=== PATIENT | female | born 1990 | race Caucasian/White ===

== ENCOUNTER 2020-01-30 16:04 | Emergency (ER) | payer SELFPAY ==
--- NOTE | ~2020-01-30 | XR_ITS ---
EXAMINATION: XR lumbar spine 2-3V EXAM DATE: 01/30/2020 16:47 INDICATION: Left-sided low back pain status post fall. History of T12 fracture. TECHNIQUE: Lumber spine frontal, lateral, lateral L5-S1 projections for interpretation. Correlation i s made to CT lumbar spine 02/09/2018. FINDINGS: Again there is mild anterior wedging at the superior endplate of T12, a chronic compressio n fracture. There are no acute fractures identified. The vertebral body and disc heights are otherw ise well maintained. Sacrum, sacroiliac joints, sacral arcuate lines are intact. There is minimal l umbar levoscoliosis. There is mild lumbar facet arthropathy. IMPRESSION: No acute lumbar findings. Reviewed, dictated and finalized at location A. IMPRESSION: No acute lumbar findings.
[2020-01-30 16:09] VITALS: BP 144/84; PULSE 92; RESP 14; TEMP 36.8; O2SAT 100
--- NOTE | 2020-01-30 16:15 | ED.BACK ---
HPI - Back Pain/Injury General Chief Complaint: Back Pain/Injury Stated Complaint: back pain Time Seen by Provider: 01/30/20 16:15 Source: patient and RN notes reviewed Mode of arrival: ambulatory Limitations: no limitations History of Present Illness HPI Narrative: patient was getting out of an RV. She turned to close the door the handle came off she lost her balance and fell onto her lower back. She has a history of a compression fracture at T12. She is concerned and wants to be sure she did not fracture that again. She otherwise has no other associated symptoms no other complaints. MD elicited complaint: back injury Pertinent past history: prior back pain and recent trauma Onset (ago): day(s) (1) Timing: constant Severity: moderate Similar Symptoms Previously: Yes Quality: dull, aching and spasming Location: lumbar spine and left lower back Radiation: none Exacerbating factors: movement Relieving factors: sitting upright Context: fall Associated symptoms: denies other symptoms Work related injury: No Related Data Home Medications Medication Instructions Recorded Confirmed No Home Medications 01/30/20 01/30/20 Allergies Allergy/AdvReac Type Severity Reaction Status Date / Time codeine Allergy Rash Verified 01/30/20 16:14 Review of Systems Review of Systems: All systems reviewed & are unremarkable except as noted in HPI and below PMFSH Past Medical History Medical History (Updated 01/30/20 @ 16:59 by Morgan Callaway MD) No active medical problems Surgical History Surgical History (Updated 01/30/20 @ 16:26 by Morgan Callaway MD) Extradural cyst of spine H/O knee surgery right Social History Social History (Updated 01/30/20 @ 16:28 by Morgan Callaway MD) Smoking status: Never smoker Alcohol intake: current Alcohol use details: occasional Substance use: never Exam Const: General: healthy appearing and no acute distress Nutritional Appearance: well nourished Orientation/consciousness: patient oriented x3 Other: Female nurse in room during examination. HENMT: Head: normal to inspection Face and sinus: normal facial exam Eyes: Conjunctivae: conjunctivae normal Pupils: Equal, round and reactive pupils present EOM: EOMs intact bilaterally Neck: Neck: normal visual inspection Resp: Effort & Inspection: normal respiratory effort Auscultation: clear to auscultation bilaterally Cardio: Rate: regular rate Rhythm: regular rhythm GI: Auscultation: normal bowel sounds Back/Spine/Pelvis: Cervical Spine: cervical ROM normal Thoracic/Lumbar Spine: straight leg raise negative bilaterally, paraspinal muscle tenderness on the left in the lower lumbar, thoraco-lumbar ROM limited with forward flexion (mild), thoraco-lumbar spasm on the left in the lower lumbar and lumbar spinal tenderness at L4 Skin: General skin exam: normal color Rashes: no rashes Neuro: General: patient oriented x3, moves all extremities and no focal motor deficits Speech: normal speech Gait exam (Neuro): Normal gait present Extrem: General: normal to inspection and no clubbing, cyanosis or edema Psych: Appearance: grossly normal and well kempt Mental Status: mental status grossly normal Affect: normal affect Attitude: cooperative Thought content: Yes Normal thought content present Course Course Emergency Course: Offered patient injection of Toradol while in the ED for pain. She declined. Discharge Plan Discharge Clinical Impression: Strain of lumbar region Qualifiers: Encounter type: initial encounter Qualified Code(s): S39.012A - Strain of muscle, fascia and tendon of lower back, initial encounter Patient Disposition: Home, Self-Care Condition: Stable Instructions: Acute Low Back Pain (ED), Lower Back Exercises (ED) Additional Instructions: Use Tylenol and or Motrin as needed for pain. Follow-up the primary care any worsening symptoms. Prescriptions: No Action No Home Medi
--- NOTE | 2020-01-30 16:25 | PC.NURSE ---
assisted Dr Callaway on physical assessment leydi fonseca
[2020-01-30 17:03] VITALS: RESP 15; O2SAT 100
== END 2020-01-30 17:04 | disposition home or self-care (01) ==
PROVIDERS: Emergency Provider Emergency Medicine; PCP Internal Medicine
DX: S39.012A Strain of muscle, fascia and tendon of lower back, initial encounter (principal); W19.XXXA Unspecified fall, initial encounter
CPT/HCPCS: 72100; 99282; 99283